=== PATIENT | male | born 1980 | race Caucasian/White ===

== ENCOUNTER 2018-07-23 13:56 | Emergency (ER) | payer OTHER, SELFPAY ==
[2018-07-23 13:59] VITALS: BP 143/93; PULSE 101; RESP 18; O2SAT 99; BMI 25.2
--- NOTE | 2018-07-23 14:21 | ED.NAVMDI ---
HPI - Nausea/Vomiting/Diarrhea <Janet Machado PA-C - Last Filed: 07/23/18 19:49> General Chief complaint: Nausea/Vomiting/Diarrhea Stated complaint: DEHYDARATION VOMITING Time Seen by Provider: 07/23/18 14:09 Source: patient Mode of arrival: ambulatory Limitations: no limitations History of Present Illness HPI Narrative: This 38-year-old female comes in due to 5 day history GI symptoms. He states that this started on Sunday with profuse vomiting all day. Sunday he vomited once, but then started to have watery and loose diarrhea. He states that diarrhea has persisted, Q hour last night until 1:00 a.m.. He states that he is not able to tolerate any food as it just causes recurrent diarrhea, i.e. tried a banana this morning and had diarrhea again. He states that he drank some Gatorade and had coffee and had diarrhea after that also. He feels fatigue and general malaise. He states he has persistent nausea, no vomiting today, and some crampy abdominal pain especially with the diarrhea episodes. He denies fever, chills, sweats. His 5-year-old daughter has had diarrhea for over a week now however she is been behaving normally, eating and drinking and energy is good. He states a classmate of hers had this as well. He denies any recent medication changes or antibiotic use. No recent travel or camping, no other known exposures. He denies other complaints on systems review Related Data Home Medications Medication Instructions Recorded Confirmed buprenorphine-naloxone 0.5 film SUBLINGUAL Q6-8H MDD 1.5 07/23/18 07/23/18 duloxetine 60 mg PO DAILY 07/23/18 07/23/18 ondansetron 8 mg TRANSLINGUAL Q8H PRN 07/23/18 07/23/18 testosterone 1 applic TOPICAL QAM 07/23/18 07/23/18 Allergies Allergy/AdvReac Type Severity Reaction Status Date / Time No Known Drug Allergies Allergy Verified 07/23/18 13:59 Review of Systems <LATRICE Welsh Last Filed: 07/23/18 19:49> Review of Systems ROS Unobtainable: All systems reviewed & are unremarkable except as noted in HPI and below PFSH <Janet Machado PA-C - Last Filed: 07/23/18 19:49> Medical History (Updated 07/23/18 @ 16:20 by Janet Machado PA-C) Depression (Chronic) History of narcotic addiction (Resolved) Surgical History (Updated 07/23/18 @ 14:48 by Janet Machado PA-C) No history of previous surgery (Chronic) Social History Smoking Status: Never smoker Social History Smoking Status: Never smoker Exam <Janet Machado PA-C - Last Filed: 07/23/18 19:49> Narrative Exam Narrative: GENERAL APPEARANCE: Patient sitting comfortably, in no distress. HEENT: PERRL, EOMI, no scleral icterus NECK: Supple LUNGS: Clear to auscultation bilaterally. HEART: Rate and rhythm regular, normal S1 and S2, no S3 or S4. ABDOMEN: Soft, nontender, nondistended, bowel sounds present x 4 quadrants, no masses palpable, no hepatosplenomegaly. EXTREMITIES: No edema DERMATOLOGIC: No jaundice or exanthem NEUROLOGIC: Alert and oriented with normal speech and coordination Initial Vital Signs Initial Vital Signs: Vital Signs Pulse Rate 101 H 07/23/18 13:59 Respiratory Rate 18 07/23/18 13:59 Blood Pressure 143/93 H 07/23/18 13:59 Pulse Oximetry 99 07/23/18 13:59 <Priscilla Owusu MD - Last Filed: 07/25/18 08:37> Initial Vital Signs Initial Vital Signs: Vital Signs Pulse Rate 101 H 07/23/18 13:59 Respiratory Rate 18 07/23/18 13:59 Blood Pressure 143/93 H 07/23/18 13:59 Pulse Oximetry 99 07/23/18 13:59 Course <Janet Machado PA-C - Last Filed: 07/23/18 19:49> Additional Information: Patient declined Zofran while he was here and is feeling better after fluids, tolerating water and crackers. He already has Zofran at home and will take that if needed. He will continue fluids and bland diet and will return if acutely worsening symptoms. Orders Ordered: Discontinued Medications Sodium Chloride (Normal Saline 0.9%) 1,000 mls @ 1,000 mls/hr IV BOLUS ONE Stop: 07/23/18 15:35 Last Infusion: 07/23/18 16:10 Dose: 0 mls/hr Admin: 07/23/18 15:01 Dose: 1,000 mls/hr Ondansetron HCl (Zofran) 4 mg IV NOW ONE Stop: 07/23/18 14:37 Last Admin: 07/23/18 15:30 Dose: Not Given Vital Signs - 8 hr 07/23/18 13:59 07/23/18 16:28 Pulse Rate 101 H 81 Respiratory Rate 18 16 Blood Pressure 143/93 H 131/75 Pulse Oximetry 99 97 <Priscilla Owusu MD - Last Filed: 07/25/18 08:37> Orders Ordered: Discontinued Medications Sodium Chloride (Normal Saline 0.9%) 1,000 mls @ 1,000 mls/hr IV BOLUS ONE Stop: 07/23/18 15:35 Last Infusion: 07/23/18 16:10 Dose: 0 mls/hr Admin: 07/23/18 15:01 Dose: 1,000 mls/hr Ondansetron HCl (Zofran) 4 mg IV NOW ONE Stop: 07/23/18 14:37 Last Admin: 07/23/18 15:30 Dose: Not Given Vital Signs - 8 hr 07/23/18 13:59 07/23/18 16:28 Pulse Rate 101 H 81 Respiratory Rate 18 16 Blood Pressure 143/93 H 131/75 Pulse Oximetry 99 97 MDM - Nausea/Vomiting/Diarrhea <Janet Machado PA-C - Last Filed: 07/23/18 19:49> Lab Data Result diagrams: 07/23/18 14:50 07/23/18 15:22 Lab Results 07/23/18 07/23/18 07/23/18 Range/Units 14:50 15:22 15:22 WBC 5.6 (4.5-11.0) X10^3/uL RBC 5.20 (4.5-5.9) X10^6/uL Hgb 16.4 (13.5-17.5) g/dL Hct 46.8 (41-53) % MCV 89.9 (80-100) fL MCH 31.6 (26-34) PG MCHC 35.1 (30-36) % RDW 13.2 (11.6-14.8) % Plt Count 174 (150-400) X10^3/uL Neut % (Auto) 61.8 (50-75) % Lymph % (Auto) 25.9 (25-40) % [place] % (Auto) 8.0 (3-14) % Eos % (Auto) 3.5 (2-4) % Baso % (Auto) 0.8 (0-2) % Neut # (Auto) 3400 (5142-0115) /uL Lymph # (Auto) 1400 (0275-3993) /uL [place] # (Auto) 400 (0-900) /uL Eos # (Auto) 200 (0-450) /uL Baso # (Auto) 0 (0-100) /uL Sodium 139 (137-145) mmol/L Potassium 4.1 (3.4-5.1) mmol/L Chloride 103 (98-107) mmol/L Carbon Dioxide 30 (22-32) mmol/L BUN 13 (9-20) mg/dL Creatinine 0.90 (0.66-1.25) mg/dL Estimated GFR > 60.0 (>60) mL/min BUN/Creatinine Ratio 14.4 (6-22) Glucose 84 (70-100) mg/dL Calcium 8.9 (8.4-10.2) mg/dL Total Bilirubin 0.9 (0.2-1.3) mg/dL AST 28 (17-59) IU/L ALT 28 (21-72) IU/L Alkaline Phosphatase 69 (38-126) U/L Total Protein 7.3 (6.3-8.2) g/dL Albumin 4.2 (3.5-5.0) g/dL Globulin 3.1 (1.7-4.1) g/dL Albumin/Globulin Ratio 1.4 (1.0-2.8) Lipase 20 L (23-300) U/L <Priscilla Owusu MD - Last Filed: 07/25/18 08:37> Lab Data Lab Results 07/23/18 07/23/18 07/23/18 Range/Units 14:50 15:22 15:22 WBC 5.6 (4.5-11.0) X10^3/uL RBC 5.20 (4.5-5.9) X10^6/uL Hgb 16.4 (13.5-17.5) g/dL Hct 46.8 (41-53) % MCV 89.9 (80-100) fL MCH 31.6 (26-34) PG MCHC 35.1 (30-36) % RDW 13.2 (11.6-14.8) % Plt Count 174 (150-400) X10^3/uL Neut % (Auto) 61.8 (50-75) % Lymph % (Auto) 25.9 (25-40) % [place] % (Auto) 8.0 (3-14) % Eos % (Auto) 3.5 (2-4) % Baso % (Auto) 0.8 (0-2) % Neut # (Auto) 3400 (5353-2697) /uL Lymph # (Auto) 1400 (1575-3988) /uL [place] # (Auto) 400 (0-900) /uL Eos # (Auto) 200 (0-450) /uL Baso # (Auto) 0 (0-100) /uL Sodium 139 (137-145) mmol/L Potassium 4.1 (3.4-5.1) mmol/L Chloride 103 (98-107) mmol/L Carbon Dioxide 30 (22-32) mmol/L BUN 13 (9-20) mg/dL Creatinine 0.90 (0.66-1.25) mg/dL Estimated GFR > 60.0 (>60) mL/min BUN/Creatinine Ratio 14.4 (6-22) Glucose 84 (70-100) mg/dL Calcium 8.9 (8.4-10.2) mg/dL Total Bilirubin 0.9 (0.2-1.3) mg/dL AST 28 (17-59) IU/L ALT 28 (21-72) IU/L Alkaline Phosphatase 69 (38-126) U/L Total Protein 7.3 (6.3-8.2) g/dL Albumin 4.2 (3.5-5.0) g/dL Globulin 3.1 (1.7-4.1) g/dL Albumin/Globulin Ratio 1.4 (1.0-2.8) Lipase 20 L (23-300) U/L Discharge Plan Departure Patient Disposition: Home Clinical Impression: Gastroenteritis Discharge Date/Time: 07/23/18 16:28 Interventions: ED Discharge Assessment Last Done: 07/23/18 16:28 Instructions: DI for Dehydration -- Adult, DI for Viral Gastroenteritis -- Adult, Gastroenteritis Diet Activity Restrictions/Additional Instructions: I suspect that your vomiting and diarrhea are due to a viral infection given that your daughter and her friend were sick prior to you, however as we talked about you should see your PCP if you are not continuing to feel better over the next few days. We did not do stool studies today since you did not have diarrhea while you were here. Please rest at home this evening. Please continue to drink lots of clear fluids, and you can have clear broth if you wish. As you start to feel better later tonight in the morning you can try small amounts of bland food such as bananas, white rice, white toast, and applesauce, and if you do well with these you can slowly advance your diet back to normal. You can take the antinausea pills that were prescribed for you over the weekend as needed. As we discussed, you should return here if you are feeling acutely worse again, i.e. unable to keep down any fluids, high fever, new abdominal pain, etc. Prescriptions: No Action ondansetron 8 mg tablet,disintegrating 8 mg Translingual Q8H PRN (Reason: Nausea) RF: 0 duloxetine 60 mg capsule,delayed release(DR/EC) 60 mg PO DAILY RF: 0 buprenorphine-naloxone 8-2 mg film 0.5 film Sublingual Q6-8H MDD 1.5 RF: 0 testosterone 20.25 mg/1.25 gram (1.62 %) gel in metered-dose pump 1 applic topical QAM RF: 0 Referrals: Michelle Esquivel ND [Non-Staff] -
[2018-07-23 15:00] LABS: Add Manual Diff / Slide Review NO; Basophils Absolute Auto 0 /uL (0-100); Basophils Percent Auto 0.8 % (0-2); Eosinophils Absolute Auto 200 /uL (0-450); Eosinophils Percent Auto 3.5 % (2-4); Hematocrit 46.8 % (41-53); Hemoglobin 16.4 g/dL (13.5-17.5); Lymphocytes Absolute Auto 1400 /uL (1100-4500); Lymphocytes Percent Auto 25.9 % (25-40); Mean Corpuscular HGB Conc 35.1 % (30-36); Mean Corpuscular Hemoglobin 31.6 PG (26-34); Mean Corpuscular Volume 89.9 fL (80-100); Monocytes Absolute Auto 400 /uL (0-900); Neutrophils Absolute Auto 3400 /uL (1500-7000); Neutrophils Percent Auto 61.8 % (50-75); Platelet Count 174 X10^3/uL (150-400); Red Cell Distribution Width 13.2 % (11.6-14.8); White Blood Cell Count 5.6 X10^3/uL (4.5-11.0)
[2018-07-23] MEDS: SODIUM CHLORIDE 0.9% 1,000 ML 1000 ML IV (15:01)
[2018-07-23 15:25] LABS: Lipase 20 U/L (23-300)
[2018-07-23 15:40] LABS: Alanine Aminotransferase 28 IU/L (21-72); Albumin 4.2 g/dL (3.5-5.0); Albumin Globulin Ratio 1.4 (1.0-2.8); Alkaline Phosphatase 69 U/L (38-126); Aspartate Aminotransferase 28 IU/L (17-59); BUN Creatinine Ratio 14.4 (6-22); Bilirubin Total 0.9 mg/dL (0.2-1.3); Blood Urea Nitrogen 13 mg/dL (9-20); Calcium 8.9 mg/dL (8.4-10.2); Carbon Dioxide 30 mmol/L (22-32); Chloride 103 mmol/L (98-107); Estimated Glomerular Filt Rate > 60.0 mL/min (>60); Globulin 3.1 g/dL (1.7-4.1); Glucose 84 mg/dL (70-100); HEMOLYSIS < 15 (0-50); Potassium 4.1 mmol/L (3.4-5.1); Sodium 139 mmol/L (137-145); Total Protein 7.3 g/dL (6.3-8.2)
[2018-07-23 16:28] VITALS: BP 131/75; PULSE 81; RESP 16; O2SAT 97
== END 2018-07-23 16:28 | disposition home or self-care (01) ==
PROVIDERS: Emergency Medicine; Emergency Provider Internal Medicine
DX: K52.9 Noninfective gastroenteritis and colitis, unspecified (principal)
CPT/HCPCS: 36415; 36591; 80053; 83690; 85025; 96360; 99283

== ENCOUNTER → 2019-05-08 09:45 | Outpatient (CLI) | payer OTHER, SELFPAY ==
[2019-05-08 10:21] LABS: Alanine Aminotransferase 35 IU/L (<50); Albumin 4.6 g/dL (3.5-5.0); Albumin Globulin Ratio 1.4 (1.0-2.8); Alkaline Phosphatase 63 U/L (38-126); Aspartate Aminotransferase 48 IU/L (17-59); BUN Creatinine Ratio 29.5 (6-22); Bilirubin Total 0.6 mg/dL (0.2-1.3); Blood Urea Nitrogen 28 mg/dL (9-20); Calcium 9.7 mg/dL (8.4-10.2); Carbon Dioxide 27 mmol/L (22-32); Chloride 105 mmol/L (98-107); Estimated Glomerular Filt Rate > 60.0 mL/min (>60); Globulin 3.3 g/dL (1.7-4.1); Glucose 92 mg/dL (70-100); HEMOLYSIS < 15 (0-50); Potassium 4.3 mmol/L (3.4-5.1); Sodium 140 mmol/L (137-145); Total Protein 7.9 g/dL (6.3-8.2)
[2019-05-08 11:21] LABS: Thyroid Stimulating Hormone 1.39 uIU/mL (0.47-4.68)
[2019-05-13 12:19] LABS: Testosterone Free 95.72 ng/dL (5.00-21.00)
[2019-05-13 12:41] LABS: Testosterone Total 2076.4 ng/dL (264.0-916.0)
== END ==
PROVIDERS: Referring Provider Acupuncturist; Visit Provider Acupuncturist
DX: E29.1 Testicular hypofunction (principal); R53.83 Other fatigue
CPT/HCPCS: 36415; 80053; 84402; 84403; 84443

== ENCOUNTER → 2019-10-15 09:54 | Outpatient (CLI) | payer OTHER, SELFPAY ==
[2019-10-15 12:26] LABS: Testosterone > 2160 ng/dL (132-813)
== END ==
PROVIDERS: Referring Provider Acupuncturist; Visit Provider Acupuncturist
DX: E29.1 Testicular hypofunction (principal)
CPT/HCPCS: 36415; 84403

== ENCOUNTER → 2020-01-07 11:20 | Outpatient (CLI) | payer OTHER, SELFPAY ==
[2020-01-11 02:11] LABS: Percent Free Testosterone 3.97 % (1.50-4.20); Testosterone Free 11.05 ng/dL (5.00-21.00); Testosterone Total 278.4 ng/dL (264.0-916.0)
== END ==
PROVIDERS: PCP Acupuncturist; Referring Provider Acupuncturist; Visit Provider Acupuncturist
DX: E29.1 Testicular hypofunction (principal)
CPT/HCPCS: 36415; 84402; 84403

== ENCOUNTER 2020-05-25 18:35 | Emergency (ER) | payer OTHER, SELFPAY ==
[2020-05-25 18:41] VITALS: BP 155/81; PULSE 100; RESP 20; TEMP 37.3; O2SAT 99
--- NOTE | 2020-05-25 18:45 | DI.RAD.S_ITS ---
PROCEDURE: XR CHEST 1V INDICATIONS: chest pain TECHNIQUE: One view of the chest was acquired. COMPARISON: None. FINDINGS: Surgical changes and devices: None. Lungs and pleura: Lungs are clear. No pleural effusions or pneumothorax. Mediastinum: Mediastinal contours appear normal. Heart size is normal. Bones and chest wall: No suspicious bony lesions. Overlying soft tissues appear unremarkable. IMPRESSION: No acute cardiopulmonary abnormality. Dictated by: Donny Rao M.D. on 05/25/2020 at 19:42 Approved by: Donny Rao M.D. on 05/25/2020 at 19:42
[2020-05-25 19:01] LABS: Add Manual Diff / Slide Review NO; Basophils Absolute Auto 0 /uL (0-100); Basophils Percent Auto 0.5 % (0-2); Eosinophils Absolute Auto 200 /uL (0-450); Eosinophils Percent Auto 2.7 % (2-4); Hematocrit 43.1 % (41-53); Lymphocytes Absolute Auto 1700 /uL (1100-4500); Lymphocytes Percent Auto 24.8 % (25-40); Mean Corpuscular HGB Conc 34.9 % (30-36); Mean Corpuscular Hemoglobin 31.1 PG (26-34); Mean Corpuscular Volume 89.2 fL (80-100); Monocytes Absolute Auto 400 /uL (0-900); Monocytes Percent Auto 6.2 % (3-14); Neutrophils Absolute Auto 4500 /uL (1500-7000); Neutrophils Percent Auto 65.8 % (50-75); Platelet Count 189 X10^3/uL (150-400); Red Blood Cell Count 4.84 X10^6/uL (4.5-5.9); Red Cell Distribution Width 12.6 % (11.6-14.8); White Blood Cell Count 6.9 X10^3/uL (4.5-11.0)
[2020-05-25 19:12] LABS: INR 1.2 (0.9-1.3); Prothrombin Time 13.6 SECONDS (10.1-12.7)
[2020-05-25 19:15] LABS: PTT Partial Thromboplastin Tim 34 SECONDS (26.4-36.2)
[2020-05-25 19:18] LABS: Alanine Aminotransferase 39 IU/L (<50); Albumin 4.8 g/dL (3.5-5.0); Albumin Globulin Ratio 1.4 (1.0-2.8); Alkaline Phosphatase 64 U/L (38-126); Aspartate Aminotransferase 60 IU/L (17-59); BUN Creatinine Ratio 28.4 (6-22); Bilirubin Total 0.7 mg/dL (0.2-1.3); Blood Urea Nitrogen 29 mg/dL (9-20); Calcium 9.8 mg/dL (8.4-10.2); Carbon Dioxide 31 mmol/L (22-32); Chloride 101 mmol/L (98-107); Creatine Kinase 552 U/L (55-170); Estimated Glomerular Filt Rate > 60.0 mL/min (>60); Globulin 3.4 g/dL (1.7-4.1); Glucose 94 mg/dL (70-100); Lipase 37 U/L (23-300); Sodium 139 mmol/L (137-145); Total Protein 8.2 g/dL (6.3-8.2)
[2020-05-25 19:30] LABS: Troponin I < 0.012 ng/mL (0.01-0.034)
[2020-05-25 19:33] LABS: CKMB % Relative Index 1.1 % (1.5-5.0); Creatine Kinase MB 6.15 ng/mL (<2.37); HEMOLYSIS 44 (0-50)
--- NOTE | 2020-05-25 20:51 | ED_ITS ---
HPI - Chest Pain General Chief Complaint: Chest Pain Stated Complaint: CHEST TIGHTNESS ANXIETY Time Seen by Provider: 05/25/20 18:40 Source: patient Mode of arrival: Ambulatory Limitations: no limitations History of Present Illness HPI narrative: 40-year-old male nonsmoker without significant medical history presents with his significant other and a chief complaint of some squeezing in chest pressure that had been present earlier in the day but has long since resolved. He states that he had been in his normal state of health this morning but over the course of the day consume a significant amount of caffeine, much more than normal and also took a dietary supplement prior to working out. Started feeling an uncomfortable sensation in his anterior chest and when lifting weights developed some palpitations and increased pressure. He denies any obvious provocation, palliation or radiation. He denies dizziness, weakness or lightheadedness. He has had no exertional alteration of his symptoms, unexplained nausea, vomiting or diaphoresis He denies history of blood clot, cancer or recent trauma. He is at his baseline and asymptomatic for the visit MD complaint: chest pain Onset (ago): hour(s) Duration: now resolved Pain location: left chest Severity: mild Quality: aching Related Data Home Medications Medication Instructions Recorded Confirmed buprenorphine-naloxone 0.5 film SUBLINGUAL Q6-8H MDD 1.5 07/23/18 07/23/18 duloxetine 60 mg PO DAILY 07/23/18 07/23/18 ondansetron 8 mg TRANSLINGUAL Q8H PRN 07/23/18 07/23/18 testosterone 1 applic TOPICAL QAM 07/23/18 07/23/18 Allergies Allergy/AdvReac Type Severity Reaction Status Date / Time No Known Drug Allergies Allergy Verified 07/23/18 13:59 Review of Systems Constitutional Constitutional: Denies chills, Denies fatigue, Denies fever(s), Denies frequent falls, Denies lethargy and Denies weakness Eyes Eyes: Denies change in vision, Denies eye discharge, Denies irritation and Denies loss of vision ENT Ears, Nose, Mouth, and Throat: Denies change in voice, Denies dizziness, Denies neck pain, Denies sore throat and Denies throat swelling Cardiovascular Cardiovascular: Reports chest pain, Denies irregular heart rhythm, Denies li ghtheadedness, Denies palpitations, Denies dyspnea, Denies dyspnea on exertion and Denies orthopnea Respiratory Respiratory: Denies cough, Denies dyspnea, Denies dyspnea on exertion and Denies wheezing Gastrointestinal Gastrointestinal: Denies abdominal pain, Denies change in bowel habits, Denies diarrhea, Denies nausea and Denies vomiting Musculoskeletal Musculoskeletal: Denies neck pain and Denies numbness Integumentary/Breasts Skin/Breast: Denies pruritus, Denies erythema, Denies rash and Denies wounds Neurologic Neurologic: Denies behavioral changes, Denies confusion, Denies dizziness, Denies frequent falls, Denies loss of vision, Denies numbness and Denies weakness Psychiatric Psychiatric: Denies anxiety, Denies behavioral changes, Denies confusion, Denies depression, Denies homicidal ideation and Denies suicidal ideation Endocrine Endocrine: Denies fatigue, Denies flushing and Denies palpitations Hematologic/Lymphatic Hematologic/Lymphatic: Denies easy bruising Allergic/Immunologic Allergic/Immunologic: Denies urticaria, Denies throat swelling and Denies wheezing Patient History Medical History Depression History of narcotic addiction Surgical History No history of previous surgery Social History Smoking Status: Never smoker Smoking Status: Never smoker alcohol intake frequency: 0-2 drinks per day Substance Use Type: does not use Exam Narrative Exam Narrative: GENERAL: [40] year old patient appears stated age. Well- nourished, well-developed patient, in mild distress. HEAD: Atraumatic. Normocephalic. EYES: Pupils equal round and reactive. Extraocular motions intact. No scleral icterus. No injection or drainage. ENT: Nose without bleeding, purulent drainage. Throat without erythema, tonsillar hypertrophy or exudate. Airway patent. NECK: Trachea midline. Non tender CARDIOVASCULAR: Regular rate and rhythm without murmurs, gallops, or rubs. RESPIRATORY: Clear to auscultation. Breath sounds equal bilaterally. No wheezes, rales, or rhonchi. GASTROINTESTINAL: Abdomen soft, non-tender, nondistended. EXTREMITIES: No edema or joint tenderness. BACK: Nontender without deformity or crepitance. No flank tenderness. NEURO: AOx3. SKIN: No rash or erythema of visible areas Initial Vital Signs Initial Vital Signs: Vital Signs Temperature 99.2 F 05/25/20 18:41 Pulse Rate 100 H 05/25/20 18:41 Respiratory Rate 20 05/25/20 18:41 Blood Pressure 155/81 H 05/25/20 18:41 Pulse Oximetry 99 05/25/20 18:41 Scores HEART Score Heart Score history: Slightly Suspicious Heart Score EKG: Normal Heart Score Age: < 45 years old Heart Score risk factors: No known risk factors Heart Score troponin: < or = to normal limit Heart Score Total: 0 Course Orders Ordered: ED Orders 05/25/20 18:45 XR chest 1V Stat EKG-12 Lead Stat 05/25/20 18:50 Complete Blood Count AUTO DIFF Stat Comprehensive Metabolic Panel Stat Lipase Stat Partial Thromboplastin Time Stat Prothrombin Time INR Stat Troponin & CK Cardiac Panel Stat Vital Signs Vital signs: Vital Signs - 8 hr 05/25/20 18:41 Temperature 99.2 F Pulse Rate 100 H Respiratory Rate 20 Blood Pressure 155/81 H Pulse Oximetry 99 MDM - Chest Pain Lab Data Result diagrams: 05/25/20 18:50 05/25/20 18:50 Labs: Lab Results 05/25/20 05/25/20 05/25/20 Range/Units 18:50 18:50 18:50 WBC 6.9 (4.5-11.0) X10^3/uL RBC 4.84 (4.5-5.9) X10^6/uL Hgb 15.0 (13.5-17.5) g/dL Hct 43.1 (41-53) % MCV 89.2 (80-100) fL MCH 31.1 (26-34) PG MCHC 34.9 (30-36) % RDW 12.6 (11.6-14.8) % Plt Count 189 (150-400) X10^3/uL Neut % (Auto) 65.8 (50-75) % Lymph % (Auto) 24.8 L (25-40) % [place] % (Auto) 6.2 (3-14) % Eos % (Auto) 2.7 (2-4) % Baso % (Auto) 0.5 (0-2) % Neut # (Auto) 4500 (8098-5399) /uL Lymph # (Auto) 1700 (6101-5708) /uL [place] # (Auto) 400 (0-900) /uL Eos # (Auto) 200 (0-450) /uL Baso # (Auto) 0 (0-100) /uL PT 13.6 H (10.1-12.7) SECONDS INR 1.2 (0.9-1.3) APTT 34 (26.4-36.2) SECONDS Sodium 139 (137-145) mmol/L Potassium 4.0 (3.4-5.1) mmol/L Chloride 101 (98-107) mmol/L Carbon Dioxide 31 (22-32) mmol/L BUN 29 H (9-20) mg/dL Creatinine 1.02 (0.66-1.25) mg/dL Estimated GFR > 60.0 (>60) mL/min BUN/Creatinine Ratio 28.4 H (6-22) Glucose 94 (70-100) mg/dL Calcium 9.8 (8.4-10.2) mg/dL Total Bilirubin 0.7 (0.2-1.3) mg/dL AST 60 H (17-59) IU/L ALT 39 (<50) IU/L Alkaline Phosphatase 64 (38-126) U/L Total Creatine Kinase 552 H (55-170) U/L CK-MB (CK-2) 6.15 H (<2.37) ng/mL CK-MB (CK-2) Rel Index 1.1 L (1.5-5.0) % Troponin I < 0.012 (0.01-0.034) ng/mL Total Protein 8.2 (6.3-8.2) g/dL Albumin 4.8 (3.5-5.0) g/dL Globulin 3.4 (1.7-4.1) g/dL Albumin/Globulin Ratio 1.4 (1.0-2.8) Lipase 37 (23-300) U/L Imaging Data Chest x-ray: Radiologist's Impression: [address] [id number] ReportSigned Patient: David Kruger KMR#: [id number]: [id number]:[id number]/Sex: 40 / MDate of Service: 05/25/20Loc: EDAccession Number: [id number] Procedure: XR chest 1V Ordering Provider: Arnulfo Montes D.O. PROCEDURE: XR CHEST 1V INDICATIONS: chest pain TECHNIQUE: One view of the chest was acquired. COMPARISON: None. FINDINGS: Surgical changes and devices: None. Lungs and pleura: Lungs are clear. No pleural effusions or pneumothorax. Mediastinum: Mediastinal contours appear normal. Heart size is normal. Bones and chest wall: No suspicious bony lesions. Overlying soft tissues appear unremarkable. IMPRESSION: No acute cardiopulmonary abnormality. Dictated by: Donny Rao M.D. on 05/25/2020 at 19:42 Approved by: Donny Rao M.D. on 05/25/2020 at 19:42 ECG Data Attestation: I personally reviewed and interpreted this ECG as follows: Interpretation: EKG is normal sinus rhythm rate [ 97] and free of any signs of ischemia or ectopy. No ST segmental elevation or depression. No T wave inversions MDM Narrative Medical decision making narrative: Multiple causes of chest pain considered including CA, PE, pneumothorax, pneumonia, aortic dissection, and pleurisy. Patient reports no radiation, no diaphoresis, no provocation with exertion, and no vomiting Patient's symptoms improved over duration of stay with above-stated therapies. Findings and discharge diagnosis discussed with patient/family followed by verbalization of understanding Return precautions discussed with patient/family whom verbalize understanding. Discharge Plan Departure Patient Disposition: Home Clinical Impression: Atypical chest pain Instructions: DI for Atypical Chest Pain Activity Restrictions/Additional Instructions: *You have been diagnosed with [atypical chest pain. Your story, physical exam, EKG and lab work are very reassuring. Chest x-ray showed no abnormal findings.] *What to do: *Take medications as directed *Follow up with your primary care provider in 2-3 days, call for an appointment. Let them know you were seen in the Emergency Department and that we ask that you be seen in follow up *Return to ER if you should have any new, worsening or concerning symptoms Prescriptions: No Action ondansetron 8 mg tablet,disintegrating 8 mg Translingual Q8H PRN (Reason: Nausea) RF: 0 duloxetine 60 mg capsule,delayed release(DR/EC) 60 mg PO DAILY RF: 0 buprenorphine-naloxone 8-2 mg film 0.5 film Sublingual Q6-8H MDD 1.5 RF: 0 testosterone 20.25 mg/1.25 gram (1.62 %) gel in metered-dose pump 1 applic topical QAM RF: 0 Referrals: Michelle Esquivel ND [Primary Care Provider] -
== END 2020-05-25 21:14 | disposition home or self-care (01) ==
PROVIDERS: Emergency Provider Emergency Medicine; PCP Acupuncturist
DX: R07.89 Other chest pain (principal)
CPT/HCPCS: 36415; 71045; 80053; 82550; 82553; 83690; 84484; 85025; 85610; 85730; 93005; 99284

== ENCOUNTER → 2020-07-09 09:39 | Outpatient (CLI) | payer OTHER, SELFPAY ==
[2020-07-09 10:50] LABS: Add Manual Diff / Slide Review NO; Basophils Absolute Auto 0 /uL (0-100); Basophils Percent Auto 0.9 % (0-2); Eosinophils Absolute Auto 100 /uL (0-450); Eosinophils Percent Auto 3.2 % (2-4); Hematocrit 43.1 % (41-53); Hemoglobin 14.7 g/dL (13.5-17.5); Lymphocytes Absolute Auto 1700 /uL (1100-4500); Lymphocytes Percent Auto 39.3 % (25-40); Mean Corpuscular HGB Conc 34.1 % (30-36); Mean Corpuscular Hemoglobin 31.4 PG (26-34); Mean Corpuscular Volume 92.1 fL (80-100); Monocytes Absolute Auto 200 /uL (0-900); Monocytes Percent Auto 5.8 % (3-14); Neutrophils Absolute Auto 2100 /uL (1500-7000); Neutrophils Percent Auto 50.8 % (50-75); Platelet Count 199 X10^3/uL (150-400); Red Blood Cell Count 4.68 X10^6/uL (4.5-5.9); Red Cell Distribution Width 13.5 % (11.6-14.8); White Blood Cell Count 4.2 X10^3/uL (4.5-11.0)
[2020-07-09 11:56] LABS: Prostate Specific Antigen Scrn 0.338 ng/mL (0.1-4.0)
[2020-07-13 11:50] LABS: Percent Free Testosterone 2.98 % (1.50-4.20); Testosterone Free 5.77 ng/dL (5.00-21.00); Testosterone Total 193.6 ng/dL (264.0-916.0)
== END ==
PROVIDERS: PCP Acupuncturist; Referring Provider Acupuncturist; Visit Provider Acupuncturist
DX: E34.9 Endocrine disorder, unspecified (principal)
CPT/HCPCS: 36415; 84402; 84403; 85025; G0103

== ENCOUNTER → 2020-09-13 11:08 | Outpatient (CLI) | payer OTHER, SELFPAY ==
[2020-09-13 12:51] LABS: COVID19 -Nasal RAPID Negative (Negative)
== END ==
PROVIDERS: PCP Acupuncturist; Visit Provider Student in an Organized Health Care Education/Training Program
DX: Z20.822 Contact with and (suspected) exposure to COVID-19 (principal); J02.9 Acute pharyngitis, unspecified; R05 Cough
CPT/HCPCS: 87635

== ENCOUNTER → 2020-11-12 09:12 | Outpatient (CLI) | payer OTHER, SELFPAY ==
[2020-11-12 10:11] LABS: BUN Creatinine Ratio 24.2 (6-22); Blood Urea Nitrogen 23 mg/dL (9-20); Calcium 9.5 mg/dL (8.4-10.2); Carbon Dioxide 32 mmol/L (22-32); Chloride 104 mmol/L (98-107); Cholesterol 117 mg/dL (140-199); Estimated Glomerular Filt Rate > 60.0 mL/min (>60); Glucose 94 mg/dL (70-100); HDL Cholesterol 38 mg/dL (40-60); HEMOLYSIS < 15 (0-50); LDL Cholesterol Calculated 69 mg/dL (<100); Potassium 4.3 mmol/L (3.4-5.1); Sodium 140 mmol/L (137-145); Triglycerides 52 mg/dL (35-150)
[2020-11-20 10:18] LABS: Percent Free Testosterone 4.44 % (1.50-4.20); Testosterone Free 42.28 ng/dL (5.00-21.00); Testosterone Total 952.3 ng/dL (264.0-916.0)
== END ==
PROVIDERS: PCP Acupuncturist; Referring Provider Acupuncturist; Visit Provider Acupuncturist
DX: E29.1 Testicular hypofunction (principal); Z00.00 Encounter for general adult medical examination without abnormal findings
CPT/HCPCS: 36415; 80048; 80061; 84402; 84403; 84443

== ENCOUNTER 2021-02-10 16:17 | Emergency (ER) | payer OTHER, SELFPAY ==
--- NOTE | 2021-02-10 16:24 | DI.RAD.S_ITS ---
PROCEDURE: XR CHEST 1V INDICATIONS: chest pain TECHNIQUE: One view of the chest was acquired. COMPARISON: [facility], CR, XR CHEST 1V, 05/25/2020, 19:05. FINDINGS: Surgical changes and devices: None. Lungs and pleura: Lungs are clear. No pleural effusions or pneumothorax. Mediastinum: Mediastinal contours appear normal. Heart size is normal. Bones and chest wall: No suspicious bony lesions. Overlying soft tissues appear unremarkable. IMPRESSION: No acute cardiopulmonary pathology. Dictated by: Kai Anthony M.D. on 02/10/2021 at 16:42 Approved by: Kai Anthony M.D. on 02/10/2021 at 16:44
[2021-02-10 16:25] VITALS: BP 169/91; PULSE 94; RESP 17; TEMP 36.7; O2SAT 99; BMI 26.4
[2021-02-10 16:58] LABS: Add Manual Diff / Slide Review NO; Basophils Absolute Auto 0 /uL (0-100); Basophils Percent Auto 0.6 % (0-2); Eosinophils Absolute Auto 200 /uL (0-450); Eosinophils Percent Auto 2.9 % (2-4); Hematocrit 43.4 % (41-53); Hemoglobin 15.1 g/dL (13.5-17.5); Lymphocytes Absolute Auto 1400 /uL (1100-4500); Lymphocytes Percent Auto 26.5 % (25-40); Mean Corpuscular HGB Conc 34.7 % (30-36); Mean Corpuscular Hemoglobin 31.4 PG (26-34); Mean Corpuscular Volume 90.3 fL (80-100); Monocytes Absolute Auto 300 /uL (0-900); Monocytes Percent Auto 6.5 % (3-14); Neutrophils Absolute Auto 3400 /uL (1500-7000); Neutrophils Percent Auto 63.5 % (50-75); Platelet Count 165 X10^3/uL (150-400); Red Cell Distribution Width 12.8 % (11.6-14.8); White Blood Cell Count 5.4 X10^3/uL (4.5-11.0)
[2021-02-10 17:07] LABS: Alanine Aminotransferase 65 IU/L (<50); Albumin 4.7 g/dL (3.5-5.0); Albumin Globulin Ratio 1.3 (1.0-2.8); Alkaline Phosphatase 59 U/L (38-126); Aspartate Aminotransferase 81 IU/L (17-59); Bilirubin Total 0.6 mg/dL (0.2-1.3); Blood Urea Nitrogen 27 mg/dL (9-20); Calcium 9.7 mg/dL (8.4-10.2); Carbon Dioxide 32 mmol/L (22-32); Chloride 102 mmol/L (98-107); Creatine Kinase 922 U/L (55-170); Estimated Glomerular Filt Rate > 60.0 mL/min (>60); Globulin 3.5 g/dL (1.7-4.1); Glucose 150 mg/dL (70-100); HEMOLYSIS < 15 (0-50); Lipase 35 U/L (23-300); Potassium 3.9 mmol/L (3.4-5.1); Sodium 140 mmol/L (137-145); Total Protein 8.2 g/dL (6.3-8.2)
[2021-02-10 17:19] LABS: Troponin I < 0.012 ng/mL (0.01-0.034)
[2021-02-10 17:22] LABS: CKMB % Relative Index 1.1 % (1.5-5.0)
[2021-02-10 17:30] VITALS: BP 155/75; PULSE 77; RESP 18; O2SAT 99
--- NOTE | 2021-02-10 17:34 | ED_ITS ---
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 in the afternoon. Also notes that he uses quite a bit of caffeine including caffeine pills in the morning, occasional red Bulls during the day and then uses a high caffeine pre workout complex just prior to his workouts, after he is off shift. Today he had an episode chest tightness and mild dyspnea that did not seem to resolve until he actually got to the emergency department. Does not describe palpitations, diaphoresis, nausea vomiting or diarrhea. He has not been gaining or losing weight. He notes no orthopnea, is exceptionally active during most of the day and not having any exertional chest pain or dyspnea. Related Data Home Medications Medication Instructions Recorded Confirmed buprenorphine 8 mg-naloxone 2 mg 0.5 film SUBLINGUAL Q6-8H MDD 1.5 07/23/18 07/23/18 sublingual film duloxetine 60 mg capsule,delayed 60 mg PO DAILY 07/23/18 07/23/18 release ondansetron 8 mg disintegrating 8 mg TRANSLINGUAL Q8H PRN 07/23/18 07/23/18 tablet testosterone 20.25 mg/1.25 gram 1 applic TOPICAL QAM 07/23/18 07/23/18 (1.62 %) transdermal gel pump Allergies Allergy/AdvReac Type Severity Reaction Status Date / Time No Known Drug Allergies Allergy Verified 05/26/20 08:20 Review of Systems Review of Systems Narrative: Remainder of complete review of systems is otherwise unremarkable except for that included in the HPI. Patient History Medical History Depression History of narcotic addiction Surgical History No history of previous surgery Social History Smoking Status: Never smoker Smoking Status: Never smoker alcohol intake frequency: 0-2 drinks per day Alcohol type: other Substance Use Type: does not use Exam Narrative Exam Narrative: General: Healthy appearing, in no acute distress. Able to give a complete and coherent history. Well-nourished well-developed HEENT: Moist mucous membranes, normal sclera with reactive pupils, Neck: No JVD, supple Respiratory: Lungs are clear to auscultation, no wheezing no rales no rhonchi. Full and symmetrical air movement Cardiac: Regular rate and rhythm no murmurs no bruits Abdomen: Soft, nontender, good bowel tones, no flank pain Skin: Warm and dry, no rashes Neurologic: Grossly neurologically intact with no obvious asymmetries or abnormalities Extremities: No trauma, well perfused Psych: Cooperative, appropriate insight and affect Initial Vital Signs Initial Vital Signs: Vital Signs Temperature 98.1 F 02/10/21 16:25 Pulse Rate 94 H 02/10/21 16:25 Respiratory Rate 17 02/10/21 16:25 Blood Pressure 169/91 H 02/10/21 16:25 Pulse Oximetry 99 02/10/21 16:25 Course Orders Ordered: ED Orders 02/10/21 16:24 XR chest 1V Stat EKG-12 Lead Stat 02/10/21 16:46 Complete Blood Count AUTO DIFF Stat Comprehensive Metabolic Panel Stat Lipase Stat Magnesium Stat Troponin & CK Cardiac Panel Stat Vital Signs Vital signs: Vital Signs - 8 hr 02/10/21 16:25 02/10/21 17:30 02/10/21 18:30 Temperature 98.1 F Pulse Rate 94 H 77 78 Respiratory Rate 17 18 17 Blood Pressure 169/91 H 155/75 H 133/67 Pulse Oximetry 99 99 99 MDM - Chest Pain Lab Data Result diagrams: 02/10/21 16:46 02/10/21 16:46 Labs: Lab Results 02/10/21 02/10/21 Range/Units 16:46 16:46 WBC 5.4 (4.5-11.0) X10^3/uL RBC 4.80 (4.5-5.9) X10^6/uL Hgb 15.1 (13.5-17.5) g/dL Hct 43.4 (41-53) % MCV 90.3 (80-100) fL MCH 31.4 (26-34) PG MCHC 34.7 (30-36) % RDW 12.8 (11.6-14.8) % Plt Count 165 (150-400) X10^3/uL Neut % (Auto) 63.5 (50-75) % Lymph % (Auto) 26.5 (25-40) % [place] % (Auto) 6.5 (3-14) % Eos % (Auto) 2.9 (2-4) % Baso % (Auto) 0.6 (0-2) % Neut # (Auto) 3400 (8117-1678) /uL Lymph # (Auto) 1400 (4057-4765) /uL [place] # (Auto) 300 (0-900) /uL Eos # (Auto) 200 (0-450) /uL Baso # (Auto) 0 (0-100) /uL Sodium 140 (137-145) mmol/L Potassium 3.9 (3.4-5.1) mmol/L Chloride 102 (98-107) mmol/L Carbon Dioxide 32 (22-32) mmol/L BUN 27 H (9-20) mg/dL Creatinine 1.04 (0.66-1.25) mg/dL Estimated GFR > 60.0 (>60) mL/min BUN/Creatinine Ratio 26.0 H (6-22) Glucose 150 H (70-100) mg/dL Calcium 9.7 (8.4-10.2) mg/dL Magnesium 2.0 (1.6-2.3) mg/dL Total Bilirubin 0.6 (0.2-1.3) mg/dL AST 81 H (17-59) IU/L ALT 65 H (<50) IU/L Alkaline Phosphatase 59 (38-126) U/L Total Creatine Kinase 922 H (55-170) U/L CK-MB (CK-2) 10.30 H (<2.37) ng/mL CK-MB (CK-2) Rel Index 1.1 L (1.5-5.0) % Troponin I < 0.012 (0.01-0.034) ng/mL Total Protein 8.2 (6.3-8.2) g/dL Albumin 4.7 (3.5-5.0) g/dL Globulin 3.5 (1.7-4.1) g/dL Albumin/Globulin Ratio 1.3 (1.0-2.8) Lipase 35 (23-300) U/L Imaging Data Chest x-ray: Radiologist's Impression: FINDINGS:? ? Surgical changes and devices:? None.? ? Lungs and pleura:? Lungs are clear.? No pleural effusions or pneumothorax.? ? Mediastinum:? Mediastinal contours appear normal.? Heart size is normal.? ? Bones and chest wall:? No suspicious bony lesions.? Overlying soft tissues a ppear unremarkable.? ? IMPRESSION:? No acute cardiopulmonary pathology. ? ? Dictated by: Kai Anthony M.D. on 02/10/2021 at 16:42? ?? ECG Data Interpretation: Sinus rhythm at a rate of 88 Normal axis, normal intervals No acute ischemic changes MDM Narrative Medical decision making narrative: 40-year-old gentleman who presents with chest tightness associated with mild dyspnea at now completely resolved. Workup is entirely unremarkable. His creatinine kinase was slightly elevated do believe is consistent with his workout supplements and recent vigorous weightlifting workouts. There is no evidence of rhabdomyolysis, acute coronary syndrome, infection, asthma or other life-threatening abnormalities We discussed his caffeine use and how it likely is contributing to his symptoms as it seems to occur about an hour after he takes is heavily caffeinated pre workout supplement. We also talked about how that is likely adversely affecting his sleep leaving him feeling tired in the morning feeling that he needs even more caffeine. He was very willing to consider significantly cutting back on caffeine. Reassurance is given and he is safe for home discharge Discharge Plan Departure Patient Disposition: Home Clinical Impression: Atypical chest pain, Adverse effect of caffeine Instructions: DI for Atypical Chest Pain Activity Restrictions/Additional Instructions: Thank you for coming in today Your blood work was very reassuring. There is no evidence of heart attack or acute coronary syndrome. Your creatinine was relatively elevated and I believe this is related to your heavy workouts as well as supplementation, I do not think this is a concerning abnormality or kidney problem Regarding the shortness of breath that your of noticed a couple times now at the end of your work shift, I suspect that your caffeine intake is contributing to this. When you get used to quite a bit of caffeine, it is sometimes difficult to realize how much of an effect is still having on your body. You mention still being tired and feeling that you need caffeine even after reasonable amounts of sleep. I suspect that your pre workout large dose of caffeine adversely affecting your sleep. I would recommend you cut caffeine out in the afternoons completely. Find a pre workout drink that does not include caffeine. After you have adjusted to this change, I would recommend cutting Monster drinks out completely. After that, cut down the morning caffeine dose by half and then completely eliminate that. Decreasing caffeine can cause headaches so go slowly. Regarding her workouts, seeing how high your creatinine level is lets me know how hard your working your muscles. This is a breakdown product of muscles. Without much of a workout you need to allow the muscle to reform. This means a true rest day. And notes he has difficult to think about cutting down on working out that you may find that you feel better, have more energy and are still achieving all of the results you are hoping for If you have worsening symptoms or new complaints, please feel free to return to the ER. I wish you the best Prescriptions: No Action ondansetron 8 mg tablet,disintegrating 8 mg Translingual Q8H PRN (Reason: Nausea) 0RF Label Comments: patient states did not every take medication due to concern of interaction with duloxetine. 07/23/18 duloxetine 60 mg capsule,delayed release(DR/EC) 60 mg PO DAILY 0RF Label Comments: take 1 capsule by mouth once daily buprenorphine-naloxone 8-2 mg film 0.5 film Sublingual Q6-8H MDD 1.5 0RF Label Comments: patient states tapering. Currently 1/2 film am and pm and 1/4 if needed testosterone 20.25 mg/1.25 gram (1.62 %) gel in metered-dose pump 1 applic topical QAM 0RF Referrals: Michelle Esquivel ND [Primary Care Provider] -
[2021-02-10 18:30] VITALS: BP 133/67; PULSE 78; RESP 17; O2SAT 99
== END 2021-02-10 18:35 | disposition home or self-care (01) ==
PROVIDERS: Emergency Provider Emergency Medicine; PCP Acupuncturist
DX: R07.89 Other chest pain (principal); T43.615A Adverse effect of caffeine, initial encounter
CPT/HCPCS: 36415; 71045; 80053; 82550; 82553; 83690; 83735; 84484; 85025; 93005; 93010; 99284

== ENCOUNTER 2021-10-01 10:43 | Emergency (ER) | payer OTHER, SELFPAY ==
[2021-10-01] VITALS (10 sets, daily range): BP systolic 102–129; BP diastolic 59–81; PULSE 61–98; RESP 13–18; TEMP 37.1; O2SAT 95–98; BMI 23.7
--- NOTE | 2021-10-01 11:01 | DI.RAD.S_ITS ---
PROCEDURE: XR CHEST 1V INDICATIONS: chest pain TECHNIQUE: One view of the chest was acquired with repeat to include the lung bases.. COMPARISON: [facility], [place], XR CHEST 1V, 02/10/2021, 16:29. FINDINGS: Surgical changes and devices: None. Overlying EKG wires. Lungs and pleura: Lungs are clear. No pleural effusions or pneumothorax. Mediastinum: Mediastinal contours appear normal. Heart size is normal. Bones and chest wall: No suspicious bony lesions. Overlying soft tissues appear unremarkable. IMPRESSION: No evidence of an acute cardiopulmonary abnormality. Dictated by: Augie Romero D.O. on 10/01/2021 at 11:01 Approved by: Augie Romero D.O. on 10/01/2021 at 11:02
--- NOTE | 2021-10-01 11:19 | PC.NURSE ---
pt states he has seen his PCP for these episodes states she did not do any testing. Pt states he does not feel this is related to his heart and will decline xray at this time.
[2021-10-01 11:25] LABS: INR 1.2 (0.9-1.3); Prothrombin Time 13.7 SECONDS (10.1-12.7)
[2021-10-01 11:27] LABS: PTT Partial Thromboplastin Tim 33 SECONDS (26.4-36.2)
--- NOTE | 2021-10-01 11:30 | ED_ITS ---
HPI - Chest Pain General Chief Complaint: Chest Pain Stated Complaint: NECK PAIN DOWN LEFT SIDE, HEADACHE, JAW PAIN Time Seen by Provider: 10/01/21 11:22 Source: patient Mode of arrival: Ambulatory Limitations: no limitations History of Present Illness HPI narrative: Patient is a 41-year-old male history of chronic pain on chronic Suboxone, and anxiety presents today with 1 week of a brain fog neck pain shortness of breath difficulty walking. He says that he has had multiple COVID tests are all negative. He has no real shortness of breath with exertion he does not really chest pain. He is more concerned with like a brain fog and confusion. He has got some left-sided neck pain but is not reproducible with movement or palpation he is not having any pain now. He takes 400 mg of ibuprofen daily without any relief. He has no numbness tingling or weakness in his arms or extremities. He went to see his blemish remover earlier this week he is not sure what was done for just does not feel quite right. No headaches no nausea or vomiting. Related Data Home Medications Medication Instructions Recorded Confirmed buprenorphine 8 mg-naloxone 2 mg 0.5 film sublingual Q6-8H 07/23/18 05/31/21 sublingual film duloxetine 60 mg capsule,delayed 60 mg PO DAILY 07/23/18 05/31/21 release ondansetron 8 mg disintegrating 8 mg translingual Q8H PRN Nausea 07/23/18 05/31/21 tablet testosterone 20.25 mg/1.25 gram 1 applic topical QAM 07/23/18 05/31/21 (1.62 %) transdermal gel pump Previous Rx's Medication Instructions Recorded hydroxyzine pamoate 50 mg capsule 50 mg PO TID anxiety #20 caps 10/01/21 (Vistaril) Allergies Allergy/AdvReac Type Severity Reaction Status Date / Time No Known Drug Allergies Allergy Verified 10/01/21 11:02 Review of Systems Review of Systems Narrative: GENERAL: Denies chills, fatigue, malaise, fever, sweats, travel HEENT: Denies sinus pain, ear pain, sore throat, difficulty swallowing, neck pain RESPIRATORY: See HPI CARDIOVASCULAR: Denies chest pain, palpitations, orthopnea, edema GASTROINTESTINAL: Denies nausea, vomiting, abdominal pain, diarrhea, constipation, melena. : Denies dysuria, frequency, incontinence, hematuria, urinary retention, flank pain. MUSCULOSKELETAL: Denies weakness, joint pain, or bony pain SKIN: No rash, no erythema, no pruritus NEUROLOGIC: See HPI PSYCHIATRIC: No concerning psychosocial issues. 12 point review of systems is negative except for those stated above and HPI Patient History Medical History Depression History of narcotic addiction Surgical History No history of previous surgery Social History Smoking Status: Never smoker Smoking Status: Never smoker alcohol intake frequency: 0-2 drinks per day Alcohol type: other Substance Use Type: does not use Exam Initial Vital Signs Initial Vital Signs: Vital Signs Temperature 98.8 F 10/01/21 10:55 Pulse Rate 97 H 10/01/21 10:55 Respiratory Rate 15 10/01/21 10:55 Blood Pressure 128/81 10/01/21 10:55 Pulse Oximetry 97 10/01/21 10:55 Oxygen Delivery Method 10/01/21 10:55 GENERAL: Slightly anxious well-appearing 41-year-old male HEENT: Head atraumatic,EOMI, pupils reactive, face symmetric, moist mucous membranes NECK: No vertebral tenderness no step-off full flexion extension and rotation CARDIOVASCULAR: Regular rate and rhythm without murmurs, rubs or gallops. RESPIRATORY: Breath sounds equal bilaterally, no wheezes rales or rhonchi. ABDOMEN: Soft, nontender. Normoactive bowel sounds all 4 quadrants. No guarding or rebound. EXTREMITIES: Normal range of motion, no clubbing or edema. Neurovascularly intact NEUROLOGICAL: Alert and oriented x4.Normal gait and speech. Cranial nerves II through XII grossly intact. Good [id number], good [id number], strength equal bilaterally, no dysarthria or aphasia, sensation in tact to soft touch bilaterally, no visual changes, no facial droop SKIN: Warm, dry, no laceration, no petechiae, no rashes or lesions. Scores HEART Score Heart Score history: Slightly Suspicious Heart Score EKG: Normal Heart Score Age: < 45 years old Heart Score risk factors: No known risk factors Heart Score troponin: < or = to normal limit Heart Score Total: 0 NIH Stroke Scale Level of Conciousness: Alert, keenly responsive Ask month/age: Answers both questions correctly. Open/close eyes, close hand: Performs both tasks correctly Best gaze horizontal: Normal Visual barkley: No visual loss Facial palsy: Normal symetrical movement Left arm drift: No drift for full 10 sec Right arm drift: No drift for full 10 sec Left leg drift: No drift for full 5 sec Right leg drift: No drift for full 5 sec Limb ataxia: Absent Sensory on face/arms/legs: Normal, no sensory loss Best language: No aphasia, normal Dysarthria: Normal Extinction or inattention: No abnormality Total NIH Stroke scale score: 0 PERC Score Age greater than or equal to 50 years: No Heart rate greater than or equal to 100 bpm: No Room Air O2 Sat less than 95%: No Unilateral leg swelling: No Recent trauma or surgery: No Hemoptysis: No Prior PE or DVT: No Hormone Use: No Total PERC Score: 0 Course Orders Ordered: ED Orders 10/01/21 11:01 XR chest 1V Stat 10/01/21 11:05 EKG-12 Lead Stat 10/01/21 11:16 Complete Blood Count AUTO DIFF Stat Comprehensive Metabolic Panel Stat Lipase Stat Magnesium Stat Partial Thromboplastin Time Stat Prothrombin Time INR Stat Troponin & CK Cardiac Panel Stat 10/01/21 11:39 D Dimer Stat 10/01/21 11:41 CT head/brain wo con Stat 10/01/21 14:26 Consult to BAR ASSISTANT - Check Processor Stat Vital Signs Vital signs: Vital Signs - 8 hr 10/01/21 10:55 10/01/21 10:58 10/01/21 10:58 Temperature 98.8 F Pulse Rate 97 H 98 H Respiratory Rate 15 Blood Pressure 128/81 128/81 Pulse Oximetry 97 96 Oxygen Delivery Method Room Air 10/01/21 11:00 10/01/21 11:00 10/01/21 11:30 Temperature Pulse Rate 92 H Respiratory Rate Blood Pressure 129/78 123/68 Pulse Oximetry 97 Oxygen Delivery Method 10/01/21 11:30 10/01/21 12:00 10/01/21 12:00 Temperature Pulse Rate 81 80 Respiratory Rate 14 13 Blood Pressure 127/72 Pulse Oximetry 97 96 Oxygen Delivery Method 10/01/21 12:30 10/01/21 12:30 10/01/21 13:00 Temperature Pulse Rate 75 78 Respiratory Rate 18 18 Blood Pressure 116/59 L Pulse Oximetry 95 96 Oxygen Delivery Method 10/01/21 13:00 10/01/21 13:30 10/01/21 13:30 Temperature Pulse Rate 66 Respiratory Rate 17 Blood Pressure 102/66 110/68 Pulse Oximetry 96 Oxygen Delivery Method 10/01/21 14:00 10/01/21 14:00 10/01/21 14:30 Temperature Pulse Rate 61 Respiratory Rate 14 Blood Pressure 116/62 125/79 Pulse Oximetry 97 Oxygen Delivery Method 10/01/21 14:30 Temperature Pulse Rate 68 Respiratory Rate 17 Blood Pressure Pulse Oximetry 98 Oxygen Delivery Method MDM - Chest Pain Lab Data Result diagrams: 10/01/21 11:16 10/01/21 11:16 Labs: Lab Results 10/01/21 10/01/21 10/01/21 Range/Units 11:16 11:16 11:16 WBC 4.1 L (4.5-11.0) X10^3/uL RBC 4.70 (4.5-5.9) X10^6/uL Hgb 14.9 (13.5-17.5) g/dL Hct 43.2 (41-53) % MCV 92.0 (80-100) fL MCH 31.7 (26-34) PG MCHC 34.5 (30-36) % RDW 12.8 (11.6-14.8) % Plt Count 182 (150-400) X10^3/uL Neut % (Auto) 57.4 (50-75) % Lymph % (Auto) 33.4 (25-40) % [place] % (Auto) 5.9 (3-14) % Eos % (Auto) 2.6 (2-4) % Baso % (Auto) 0.7 (0-2) % Neut # (Auto) 2400 (8237-6986) /uL Lymph # (Auto) 1400 (4766-3435) /uL [place] # (Auto) 200 (0-900) /uL Eos # (Auto) 100 (0-450) /uL Baso # (Auto) 0 (0-100) /uL PT 13.7 H (10.1-12.7) SECONDS INR 1.2 (0.9-1.3) APTT 33 (26.4-36.2) SECONDS D-Dimer (<230) ng/mL Sodium 138 (137-145) mmol/L Potassium 4.3 (3.4-5.1) mmol/L Chloride 104 (98-107) mmol/L Carbon Dioxide 29 (22-32) mmol/L BUN 28 H (9-20) mg/dL Creatinine 1.01 (0.66-1.25) mg/dL Estimated GFR > 60 (>60) mL/min BUN/Creatinine Ratio 27.7 H (6-22) Glucose 126 H (70-100) mg/dL Calcium 9.1 (8.4-10.2) mg/dL Magnesium 1.9 (1.6-2.3) mg/dL Total Bilirubin 0.6 (0.2-1.3) mg/dL AST 33 (17-59) IU/L ALT 29 (<50) IU/L Alkaline Phosphatase 55 (38-126) U/L Total Creatine Kinase 123 (55-170) U/L CK-MB (CK-2) 1.48 (<2.37) ng/mL CK-MB (CK-2) Rel Index 1.2 L (1.5-5.0) % Troponin I < 0.012 (0.01-0.034) ng/mL Total Protein 7.4 (6.3-8.2) g/dL Albumin 4.4 (3.5-5.0) g/dL Globulin 3.0 (1.7-4.1) g/dL Albumin/Globulin Ratio 1.5 (1.0-2.8) Lipase 36 (23-300) U/L 10/01/21 Range/Units 11:39 WBC (4.5-11.0) X10^3/uL RBC (4.5-5.9) X10^6/uL Hgb (13.5-17.5) g/dL Hct (41-53) % MCV (80-100) fL MCH (26-34) PG MCHC (30-36) % RDW (11.6-14.8) % Plt Count (150-400) X10^3/uL Neut % (Auto) (50-75) % Lymph % (Auto) (25-40) % [place] % (Auto) (3-14) % Eos % (Auto) (2-4) % Baso % (Auto) (0-2) % Neut # (Auto) (5087-0786) /uL Lymph # (Auto) (5287-1409) /uL [place] # (Auto) (0-900) /uL Eos # (Auto) (0-450) /uL Baso # (Auto) (0-100) /uL PT (10.1-12.7) SECONDS INR (0.9-1.3) APTT (26.4-36.2) SECONDS D-Dimer < 200 (<230) ng/mL Sodium (137-145) mmol/L Potassium (3.4-5.1) mmol/L Chloride (98-107) mmol/L Carbon Dioxide (22-32) mmol/L BUN (9-20) mg/dL Creatinine (0.66-1.25) mg/dL Estimated GFR (>60) mL/min BUN/Creatinine Ratio (6-22) Glucose (70-100) mg/dL Calcium (8.4-10.2) mg/dL Magnesium (1.6-2.3) mg/dL Total Bilirubin (0.2-1.3) mg/dL AST (17-59) IU/L ALT (<50) IU/L Alkaline Phosphatase (38-126) U/L Total Creatine Kinase (55-170) U/L CK-MB (CK-2) (<2.37) ng/mL CK-MB (CK-2) Rel Index (1.5-5.0) % Troponin I (0.01-0.034) ng/mL Total Protein (6.3-8.2) g/dL Albumin (3.5-5.0) g/dL Globulin (1.7-4.1) g/dL Albumin/Globulin Ratio (1.0-2.8) Lipase (23-300) U/L Imaging Data Chest x-ray: Radiologist's Impression: CRESENCIO Garcia [id number] XRay Report Signed Patient: David Kruger MR#: [id number] : 1980 Acct:[id number] Age/Sex: 41 / M Date of Service: 10/01/21 Loc: ED Accession Number: [id number] ?? Procedure: XR chest 1V Ordering Provider: Audra Bee D.O. PROCEDURE:? XR CHEST 1V ? INDICATIONS:? chest pain ? TECHNIQUE:? One view of the chest was acquired with repeat to include the lung bases..? ? COMPARISON:? [facility], CR, XR CHEST 1V, 02/10/2021, 16:29. ? FINDINGS:? ? Surgical changes and devices:? None.? Overlying EKG wires. ? Lungs and pleura:? Lungs are clear.? No pleural effusions or pneumothorax.? ? Mediastinum:? Mediastinal contours appear normal.? Heart size is normal.? ? Bones and chest wall:? No suspicious bony lesions.? Overlying soft tissues appear unremarkable.? ? IMPRESSION:? ? No evidence of an acute cardiopulmonary abnormality. ? ? Dictated by: Augie Romero D.O. on 10/01/2021 at 11:01 ? ? CT scan - head: Radiologist's Impression: Signed Patient: David Kruger MR#: [id number] : 1980 Acct:[id number] Age/Sex: 41 / M Date of Service: 10/01/21 Loc: ED Accession Number: [id number] ?? Procedure: CT head/brain wo con Ordering Provider: Audra Bee D.O. PROCEDURE:? CT HEAD/BRAIN WO CON ? INDICATIONS:? confuison difficulty walking ? TECHNIQUE:? Noncontrast 4.5 mm thick angled axial sections acquired from the foramen magnum to the vertex, with coronal and sagittal reformats.? For radiation dose reduction, the following was used:? automated exposure control, adjustment of mA and/or kV according to patient size.? ? COMPARISON:? None. ? FINDINGS:? Image quality:? Excellent.? ? CSF spaces:? Basal cisterns are patent.? No extra-axial fluid collections.? Ventricles are normal in size and shape.? ? Brain:? No midline shift.? No intracranial masses or hemorrhage.? Narayanan-white matter interface is normal.? ? Skull and face:? Calvarium and visualized facial bones are intact, without suspicious lesions.? ? Sinuses:? Mild ethmoid air cell and maxillary sinus mucosal disease.? Paranasal sinuses are otherwise clear.? Mastoid air cells are clear. ? IMPRESSION:? ? No acute intracranial abnormality. ? Mild paranasal sinus mucosal disease. ? ? Dictated by: Augie Romero D.O. on 10/01/2021 at 13:06 ? ? ECG Data Interpretation: Normal sinus rhythm rate 86 AR interval 154 QRS [address] changes or T- wave inversions similar to previous EKG MDM Narrative Medical decision making narrative: Patient is a healthy 41-year-old male. He has now been here a couple times for some likely anxiety. He is chronically on Suboxone trying to taper off it does not, he is actually tapering up to quickly. He has been on the same dose now for about 3 months. He is ill social welfare administrator she sees signs of some anxiety. However patient does have chronic pain which may be exacerbated as well. He is to complaining of some brain fog and headache head CT is negative no focal deficits. Blood work is overall reassuring. He is feeling better now that he is in the ED. his request social workup evaluation are trying he had a new primary care provider. Agreeable to take Vistaril as needed for anxiety attacks but I do discuss need for long-term anxiety medication. I also recommend trying to get off the Suboxone sounds though he has been on it for an extremely long time. He is trying to get off of it but body may or may not be reacting to it. He is low risk for pulmonary embolism D-dimer is also negative. Discharge Plan Departure Patient Disposition: Home Clinical Impression: Anxiety, Chronic pain Instructions: DI for Anxiety -- Adult Activity Restrictions/Additional Instructions: *You have been diagnosed with anxiety, chronic pain *What to do: At this time blood work head CT are overall reassuring. Your heart looks good head CT looks good. At this time you may be having some anxiety which may or may not be related to the Suboxone in tapering. He may have some underlying anxiety as well. Social Work has been consulted they should call you on Sunday with follow-up sometimes afternoon. [employer] work phone #[phone] *Continue to take medications as directed Vistaril 50mg every 6 hours if needed for anxiety --> sent to [facility] *Follow up with your primary care provider in 2-3 days or call [phone] *Return to ER if you should have worsening pain, worsening anxiety shortness of breath or any new, worsening or concerning symptoms Prescriptions: New hydroxyzine pamoate [Vistaril] 50 mg capsule 50 mg PO TID Qty: 20 0RF No Action ondansetron 8 mg tablet,disintegrating 8 mg Translingual Q8H PRN (Reason: Nausea) Label Comments: patient states did not every take medication due to concern of interaction with duloxetine. 07/23/18 duloxetine 60 mg capsule,delayed release(DR/EC) 60 mg PO DAILY Label Comments: take 1 capsule by mouth once daily buprenorphine-naloxone 8-2 mg film 0.5 film Sublingual Q6-8H MDD 1.5 Label Comments: patient states tapering. Currently 1/2 film am and pm and 1/4 if needed testosterone 20.25 mg/1.25 gram (1.62 %) gel in metered-dose pump 1 applic topical QAM Referrals: Michelle Esquivel ND [Primary Care Provider] - Visit Report Forms: Patient Portal/API
[2021-10-01 11:31] LABS: Add Manual Diff / Slide Review NO; Basophils Absolute Auto 0 /uL (0-100); Basophils Percent Auto 0.7 % (0-2); Eosinophils Absolute Auto 100 /uL (0-450); Eosinophils Percent Auto 2.6 % (2-4); Hematocrit 43.2 % (41-53); Hemoglobin 14.9 g/dL (13.5-17.5); Lymphocytes Absolute Auto 1400 /uL (1100-4500); Lymphocytes Percent Auto 33.4 % (25-40); Mean Corpuscular HGB Conc 34.5 % (30-36); Mean Corpuscular Hemoglobin 31.7 PG (26-34); Monocytes Absolute Auto 200 /uL (0-900); Monocytes Percent Auto 5.9 % (3-14); Neutrophils Absolute Auto 2400 /uL (1500-7000); Neutrophils Percent Auto 57.4 % (50-75); Platelet Count 182 X10^3/uL (150-400); Red Cell Distribution Width 12.8 % (11.6-14.8); White Blood Cell Count 4.1 X10^3/uL (4.5-11.0)
[2021-10-01 11:38] LABS: Alanine Aminotransferase 29 IU/L (<50); Albumin 4.4 g/dL (3.5-5.0); Albumin Globulin Ratio 1.5 (1.0-2.8); Alkaline Phosphatase 55 U/L (38-126); Aspartate Aminotransferase 33 IU/L (17-59); BUN Creatinine Ratio 27.7 (6-22); Bilirubin Total 0.6 mg/dL (0.2-1.3); Blood Urea Nitrogen 28 mg/dL (9-20); Calcium 9.1 mg/dL (8.4-10.2); Carbon Dioxide 29 mmol/L (22-32); Chloride 104 mmol/L (98-107); Creatine Kinase 123 U/L (55-170); Estimated Glomerular Filt Rate > 60 mL/min (>60); Glucose 126 mg/dL (70-100); HEMOLYSIS 43 (0-50); Lipase 36 U/L (23-300); Magnesium 1.9 mg/dL (1.6-2.3); Potassium 4.3 mmol/L (3.4-5.1); Sodium 138 mmol/L (137-145); Total Protein 7.4 g/dL (6.3-8.2)
--- NOTE | 2021-10-01 11:41 | DI.CT.S_ITS ---
PROCEDURE: CT HEAD/BRAIN WO CON INDICATIONS: confuison difficulty walking TECHNIQUE: Noncontrast 4.5 mm thick angled axial sections acquired from the foramen magnum to the vertex, with coronal and sagittal reformats. For radiation dose reduction, the following was used: automated exposure control, adjustment of mA and/or kV according to patient size. COMPARISON: None. FINDINGS: Image quality: Excellent. CSF spaces: Basal cisterns are patent. No extra-axial fluid collections. Ventricles are normal in size and shape. Brain: No midline shift. No intracranial masses or hemorrhage. Narayanan-white matter interface is normal. Skull and face: Calvarium and visualized facial bones are intact, without suspicious lesions. Sinuses: Mild ethmoid air cell and maxillary sinus mucosal disease. Paranasal sinuses are otherwise clear. Mastoid air cells are clear. IMPRESSION: No acute intracranial abnormality. Mild paranasal sinus mucosal disease. Dictated by: Augie Romero D.O. on 10/01/2021 at 13:06 Approved by: Augie Romero D.O. on 10/01/2021 at 13:08
[2021-10-01 11:51] LABS: Troponin I < 0.012 ng/mL (0.01-0.034)
[2021-10-01 11:54] LABS: CKMB % Relative Index 1.2 % (1.5-5.0); Creatine Kinase MB 1.48 ng/mL (<2.37)
[2021-10-01 12:20] LABS: D Dimer < 200 ng/mL (<230)
--- NOTE | 2021-10-01 15:20 | CM.SWNOTE ---
STEEL POURER HELPER Note This STEEL POURER HELPER requested for consult to assess needs and of this 41 yo male presented to the ED complaining of chest pain and worried about a neck injury sustained earlier in the week. According to Dr Bee, no medical findings today and patient medically ready for DC from the ER. Dr Bee suspects anxiety is playing a role in patient's frequent visits to the ED Met w/patient and spouse Kylie (w/patient's permission) introduced self and role. Patient works fulltime for the [employer] and explains that lately he has felt out of it ie fatigued, shaky at times, foggy brained and tells this STEEL POURER HELPER this is not usual for him Patient is physically active, lives w/spouse and young dtr. Spouse is a psychosocial rehabilitation counselor for [employer] Spouse Kylie explains that patient has lived with and has managed chronic pain for many years. Patient has not struggled with much, if any, sx of anxiety up until recently Patient admits since injuring himself at the gym, aches and pains have really freaked me out Referenced the cycle of anxiety and explained there is a positive feedback cycle in which anxious thoughts, physical sx and avoidance can feed anxiety Discussed box breathing, starting a journal to identify and outline triggers, making a list of places/thoughts/ideas that bring patient peace and security and setting realistic goals to begin mental/emotional work. Patient admits to great self discipline with physical challenges and getting to the gym. Says he wants to find more balance mental/physical/emotional Concluded by suggesting combination of medication and short term talk therapy, which patient said he would consider. Patient may be able to access E[employer] through work Patient/spouse requested a referral to establish w/ a PCP within the [facility] group, we discussed BHIP. Dr Bee plans to place this referral upon patient?s discharge. This STEEL POURER HELPER emailed ED STEEL POURER HELPER Sangita Hummel, who is scheduled back Sunday10.03.21, requested a call to the [facility] on Sunday to advocate for this patient to get an ER follow up visit to establish w/PCP This STEEL POURER HELPER returns 10.06.21 Patient/spouse state appreciation for the conversation, patient discharged home in no distress, home w/supportive spouse Olga Rubin, CHRISTAL
== END 2021-10-01 15:31 | disposition home or self-care (01) ==
PROVIDERS: Emergency Provider Emergency Medicine; PCP Acupuncturist
DX: F41.9 Anxiety disorder, unspecified (principal); R41.0 Disorientation, unspecified; R07.9 Chest pain, unspecified
CPT/HCPCS: 36415; 70450; 71045; 80053; 82550; 82553; 83690; 83735; 84484; 85025; 85379; 85610; 85730; 93005; 99283; 99284

== ENCOUNTER → 2021-10-14 13:06 | Outpatient (CLI) | payer OTHER, SELFPAY ==
[2021-10-14 14:36] LABS: Add Manual Diff / Slide Review NO; Basophils Absolute Auto 0 /uL (0-100); Basophils Percent Auto 0.5 % (0-2); Eosinophils Absolute Auto 100 /uL (0-450); Eosinophils Percent Auto 2.1 % (2-4); Hematocrit 43.3 % (41-53); Hemoglobin 15.3 g/dL (13.5-17.5); Lymphocytes Absolute Auto 1500 /uL (1100-4500); Lymphocytes Percent Auto 23.4 % (25-40); Mean Corpuscular HGB Conc 35.3 % (30-36); Mean Corpuscular Hemoglobin 32.3 PG (26-34); Mean Corpuscular Volume 91.5 fL (80-100); Monocytes Absolute Auto 300 /uL (0-900); Monocytes Percent Auto 5.3 % (3-14); Neutrophils Absolute Auto 4400 /uL (1500-7000); Neutrophils Percent Auto 68.7 % (50-75); Platelet Count 174 X10^3/uL (150-400); Red Blood Cell Count 4.74 X10^6/uL (4.5-5.9); Red Cell Distribution Width 12.8 % (11.6-14.8); White Blood Cell Count 6.4 X10^3/uL (4.5-11.0)
[2021-10-14 15:24] LABS: Alanine Aminotransferase 28 IU/L (<50); Albumin 4.6 g/dL (3.5-5.0); Albumin Globulin Ratio 1.6 (1.0-2.8); Alkaline Phosphatase 54 U/L (38-126); Aspartate Aminotransferase 29 IU/L (17-59); BUN Creatinine Ratio 25.8 (6-22); Bilirubin Total 0.4 mg/dL (0.2-1.3); Blood Urea Nitrogen 23 mg/dL (9-20); C-Reactive Protein Quant < 0.5 mg/dL (<1.0); Calcium 9.6 mg/dL (8.4-10.2); Carbon Dioxide 31 mmol/L (22-32); Chloride 100 mmol/L (98-107); Estimated Glomerular Filt Rate > 60 mL/min (>60); Globulin 2.9 g/dL (1.7-4.1); Glucose 92 mg/dL (70-100); HEMOLYSIS < 15 (0-50); Potassium 4.4 mmol/L (3.4-5.1); Sodium 140 mmol/L (137-145); Total Protein 7.5 g/dL (6.3-8.2)
[2021-10-14 15:52] LABS: Thyroid Stimulating Hormone 2.06 uIU/mL (0.47-4.68)
[2021-10-14 15:54] LABS: Testosterone 1250 ng/dL (132-813)
[2021-10-14 16:11] LABS: Vitamin B12 > 1000 pg/mL (239-931)
[2021-10-14 17:48] LABS: Erythrocyte Sedimentation Rate 2 MM/HR (0-15)
== END ==
PROVIDERS: PCP Acupuncturist; Referring Provider Acupuncturist; Visit Provider Acupuncturist
DX: R53.83 Other fatigue (principal)
CPT/HCPCS: 36415; 80053; 82607; 84403; 84443; 85025; 85651; 86140

== ENCOUNTER → 2021-12-05 12:28 | Outpatient (CLI) | payer OTHER, SELFPAY ==
[2021-12-05 13:28] LABS: COVID19 -Nasal RAPID Negative (Negative)
--- NOTE | 2021-12-05 14:32 | PM.TREADMILL ---
Cardiac Stress Test Report Referral & Results Date Patient Seen: 12/05/21 Requesting provider: Pasquale Chowdhury Indication: Chest pain Rest ECG: Unremarkable Procedure Note: Today following both written and verbal informed consent, the patient was exercised according to a standard Kristopher protocol. The patient exercised for a total of 10 minutes 57 seconds achieving a maximum heart rate of 173. Patient's maximum systolic blood pressure was 200. This was an estimated 12.8 MET's. There were no ST-T segment changes at all Patient was somewhat quickly tachycardic but overall peak heart rate was not excessive. Blood pressure was slow to increase but did peak at end exercise Patient with occasional PVCs and rare PACs Function aerobic impairment rates about 5% on the active scale Impression: No evidence of ischemia whatsoever Dysrhythmia as above Average exercise capacity Clinical correlation suggested Please note: Actual ECG tracings can be found in the PACS system.
== END ==
PROVIDERS: PCP Family Medicine; Referring Provider Family Medicine; Visit Provider Family Medicine
DX: R07.9 Chest pain, unspecified (principal); F43.9 Reaction to severe stress, unspecified
CPT/HCPCS: 87635; 93016; 93017; 93018

== ENCOUNTER → 2021-12-21 09:21 | Outpatient (CLI) | payer OTHER, SELFPAY ==
[2021-12-21 09:48] LABS: Add Manual Diff / Slide Review NO; Basophils Absolute Auto 0 /uL (0-100); Basophils Percent Auto 0.6 % (0-2); Eosinophils Absolute Auto 200 /uL (0-450); Eosinophils Percent Auto 3.8 % (2-4); Hematocrit 43.8 % (41-53); Hemoglobin 15.5 g/dL (13.5-17.5); Lymphocytes Absolute Auto 1500 /uL (1100-4500); Lymphocytes Percent Auto 28.8 % (25-40); Mean Corpuscular HGB Conc 35.3 % (30-36); Mean Corpuscular Hemoglobin 31.7 PG (26-34); Mean Corpuscular Volume 89.7 fL (80-100); Monocytes Absolute Auto 300 /uL (0-900); Monocytes Percent Auto 6.1 % (3-14); Neutrophils Absolute Auto 3200 /uL (1500-7000); Neutrophils Percent Auto 60.7 % (50-75); Platelet Count 193 X10^3/uL (150-400); Red Blood Cell Count 4.88 X10^6/uL (4.5-5.9); Red Cell Distribution Width 12.5 % (11.6-14.8); White Blood Cell Count 5.3 X10^3/uL (4.5-11.0)
[2021-12-21 10:50] LABS: Alanine Aminotransferase 25 IU/L (<50); Albumin 4.8 g/dL (3.5-5.0); Albumin Globulin Ratio 1.6 (1.0-2.8); Alkaline Phosphatase 67 U/L (38-126); Aspartate Aminotransferase 25 IU/L (17-59); BUN Creatinine Ratio 24.2 (6-22); Bilirubin Total 0.6 mg/dL (0.2-1.3); Blood Urea Nitrogen 22 mg/dL (9-20); Calcium 9.8 mg/dL (8.4-10.2); Carbon Dioxide 30 mmol/L (22-32); Chloride 102 mmol/L (98-107); Cholesterol 150 mg/dL (140-199); Estimated Glomerular Filt Rate > 60 mL/min (>60); Glucose 103 mg/dL (70-100); HDL Cholesterol 42 mg/dL (40-60); HEMOLYSIS < 15 (0-50); LDL Cholesterol Calculated 89 mg/dL (<100); Potassium 4.8 mmol/L (3.4-5.1); Sodium 140 mmol/L (137-145); Total Protein 7.8 g/dL (6.3-8.2); Triglycerides 95 mg/dL (35-150)
[2021-12-28 08:12] LABS: Percent Free Testosterone 4.01 % (1.50-4.20); Testosterone Total 812.9 ng/dL (264.0-916.0)
== END ==
PROVIDERS: PCP Family Medicine; Referring Provider Family Medicine; Visit Provider Family Medicine
DX: E34.9 Endocrine disorder, unspecified (principal); F11.21 Opioid dependence, in remission; F41.1 Generalized anxiety disorder
CPT/HCPCS: 36415; 80053; 80061; 84402; 84403; 85025

== ENCOUNTER → 2022-06-23 08:41 | Outpatient (CLI) | payer OTHER, SELFPAY ==
[2022-06-23 10:22] LABS: Add Manual Diff / Slide Review NO; Basophils Absolute Auto 0 /uL (0-100); Basophils Percent Auto 0.9 % (0-2); Eosinophils Absolute Auto 100 /uL (0-450); Eosinophils Percent Auto 3.5 % (2-4); Hematocrit 42.6 % (41-53); Hemoglobin 14.9 g/dL (13.5-17.5); Lymphocytes Absolute Auto 1400 /uL (1100-4500); Lymphocytes Percent Auto 38.1 % (25-40); Mean Corpuscular Hemoglobin 31.3 PG (26-34); Mean Corpuscular Volume 89.6 fL (80-100); Monocytes Absolute Auto 200 /uL (0-900); Monocytes Percent Auto 6.1 % (3-14); Neutrophils Absolute Auto 1900 /uL (1500-7000); Neutrophils Percent Auto 51.4 % (50-75); Platelet Count 171 X10^3/uL (150-400); Red Blood Cell Count 4.75 X10^6/uL (4.5-5.9); Red Cell Distribution Width 13.6 % (11.6-14.8); White Blood Cell Count 3.7 X10^3/uL (4.5-11.0)
[2022-06-23 11:14] LABS: Vitamin D 25 Hydroxy (D3) 91.2 ng/mL (30.0-100.0)
[2022-06-23 14:42] LABS: Alanine Aminotransferase 38 IU/L (<50); Albumin 4.4 g/dL (3.5-5.0); Albumin Globulin Ratio 1.6 (1.0-2.8); Alkaline Phosphatase 58 U/L (38-126); Aspartate Aminotransferase 39 IU/L (17-59); Bilirubin Total 0.5 mg/dL (0.2-1.3); Blood Urea Nitrogen 19 mg/dL (9-20); Calcium 9.4 mg/dL (8.4-10.2); Carbon Dioxide 28 mmol/L (22-32); Chloride 104 mmol/L (98-107); Estimated Glomerular Filt Rate > 60 mL/min (>60); Globulin 2.8 g/dL (1.7-4.1); Glucose 79 mg/dL (70-100); HEMOLYSIS < 15 (0-50); Potassium 4.3 mmol/L (3.4-5.1); Sodium 138 mmol/L (137-145); Total Protein 7.2 g/dL (6.3-8.2)
[2022-06-23 15:14] LABS: Cortisol AM (Before 10AM) 5.91 ug/dL (4.46-22.7)
[2022-06-23 15:18] LABS: Ferritin 106 ng/mL (18-464)
[2022-07-01 21:15] LABS: Percent Free Testosterone 3.48 % (1.50-4.20); Testosterone Free 98.38 ng/dL (5.00-21.00); Testosterone Total 2827.1 ng/dL (264.0-916.0)
== END ==
PROVIDERS: PCP Family Medicine; Referring Provider Family Medicine; Visit Provider Family Medicine
DX: Z00.00 Encounter for general adult medical examination without abnormal findings (principal); R53.83 Other fatigue; E29.1 Testicular hypofunction
CPT/HCPCS: 36415; 80053; 82306; 82533; 82728; 84402; 84403; 85025; 86618; 87476

== ENCOUNTER → 2022-09-01 10:09 | Outpatient (CLI) | payer OTHER, SELFPAY ==
[2022-09-05 10:31] LABS: Percent Free Testosterone 3.75 % (1.50-4.20); Testosterone Free 16.01 ng/dL (5.00-21.00); Testosterone Total 426.9 ng/dL (264.0-916.0)
== END ==
PROVIDERS: PCP Family Medicine; Referring Provider Acupuncturist; Visit Provider Acupuncturist
DX: E29.1 Testicular hypofunction (principal)
CPT/HCPCS: 36415; 84402; 84403

== ENCOUNTER → 2023-03-06 09:41 | Outpatient (CLI) | payer OTHER, SELFPAY ==
[2023-03-06 10:52] LABS: Add Manual Diff / Slide Review NO; Basophils Absolute Auto 0 /uL (0-100); Basophils Percent Auto 0.9 % (0-2); Eosinophils Absolute Auto 200 /uL (0-450); Eosinophils Percent Auto 4.7 % (2-4); Hemoglobin 14.6 g/dL (13.5-17.5); Lymphocytes Absolute Auto 1500 /uL (1100-4500); Lymphocytes Percent Auto 35.3 % (25-40); Mean Corpuscular HGB Conc 34.8 % (30-36); Mean Corpuscular Hemoglobin 31.6 PG (26-34); Mean Corpuscular Volume 90.7 fL (80-100); Monocytes Absolute Auto 300 /uL (0-900); Monocytes Percent Auto 6.3 % (3-14); Neutrophils Absolute Auto 2200 /uL (1500-7000); Neutrophils Percent Auto 52.8 % (50-75); Platelet Count 169 X10^3/uL (150-400); Red Blood Cell Count 4.63 X10^6/uL (4.5-5.9); Red Cell Distribution Width 13.1 % (11.6-14.8); White Blood Cell Count 4.2 X10^3/uL (4.5-11.0)
[2023-03-06 11:52] LABS: Prostate Specific Antigen Scrn 0.686 ng/mL (0.1-4.0)
[2023-03-22 11:41] LABS: Testosterone Total 3019.6 ng/dL (264.0-916.0)
== END ==
PROVIDERS: PCP Family Medicine; Referring Provider Acupuncturist; Visit Provider Acupuncturist
DX: E29.1 Testicular hypofunction (principal)
CPT/HCPCS: 36415; 84402; 84403; 85025; G0103

== ENCOUNTER → 2023-04-23 10:00 | Outpatient (CLI) | payer OTHER, SELFPAY ==
[2023-04-30 09:43] LABS: Percent Free Testosterone 3.72 % (1.50-4.20); Testosterone Total 389.9 ng/dL (264.0-916.0)
== END ==
PROVIDERS: PCP Family Medicine; Referring Provider Acupuncturist; Visit Provider Acupuncturist
DX: E29.1 Testicular hypofunction (principal)
CPT/HCPCS: 36415; 84402; 84403

== ENCOUNTER → 2023-07-02 11:01 | Outpatient (CLI) | payer OTHER, SELFPAY | PROVIDERS: PCP Family Medicine; Referring Provider Acupuncturist; Visit Provider Acupuncturist | DX: E29.1 Testicular hypofunction (principal) | CPT/HCPCS: 36415; 84402; 84403 ==

== ENCOUNTER → 2023-12-17 06:53 | Outpatient (CLI) | payer OTHER, SELFPAY ==
[2023-12-17 08:55] LABS: Add Manual Diff / Slide Review NO; Basophils Absolute Auto 0 /uL (0-100); Eosinophils Absolute Auto 300 /uL (0-450); Eosinophils Percent Auto 6.3 % (2-4); Hemoglobin 14.4 g/dL (13.5-17.5); Lymphocytes Absolute Auto 1700 /uL (1100-4500); Lymphocytes Percent Auto 39.7 % (25-40); Mean Corpuscular HGB Conc 34.3 % (30-36); Mean Corpuscular Hemoglobin 31.6 PG (26-34); Monocytes Absolute Auto 300 /uL (0-900); Neutrophils Absolute Auto 1900 /uL (1500-7000); Platelet Count 165 X10^3/uL (150-400); Red Blood Cell Count 4.57 X10^6/uL (4.5-5.9); Red Cell Distribution Width 12.9 % (11.6-14.8); White Blood Cell Count 4.2 X10^3/uL (4.5-11.0)
[2023-12-17 09:06] LABS: Alanine Aminotransferase 38 IU/L (<50); Albumin 4.3 g/dL (3.5-5.0); Albumin Globulin Ratio 1.7 (1.0-2.8); Alkaline Phosphatase 83 U/L (38-126); Aspartate Aminotransferase 46 IU/L (17-59); BUN Creatinine Ratio 25.2 (6-22); Bilirubin Total 0.4 mg/dL (0.2-1.3); Blood Urea Nitrogen 27 mg/dL (9-20); Calcium 9.3 mg/dL (8.4-10.2); Carbon Dioxide 31 mmol/L (22-32); Chloride 104 mmol/L (98-107); Estimated Glomerular Filt Rate > 60 mL/min (>60); Globulin 2.5 g/dL (1.7-4.1); Glucose 73 mg/dL (70-100); HEMOLYSIS < 15 (0-50); Potassium 4.3 mmol/L (3.4-5.1); Sodium 140 mmol/L (137-145); Total Protein 6.8 g/dL (6.3-8.2)
[2023-12-17 09:35] LABS: Prostate Specific Antigen 0.488 ng/mL (0.10-4.00)
== END ==
PROVIDERS: PCP Family Medicine; Referring Provider Family Medicine; Visit Provider Family Medicine
DX: E34.9 Endocrine disorder, unspecified (principal); F41.1 Generalized anxiety disorder
CPT/HCPCS: 36415; 80053; 84153; 84402; 84403; 85025

== ENCOUNTER → 2025-01-02 07:57 | Outpatient (CLI) | payer OTHER, SELFPAY ==
[2025-01-02 08:35] LABS: Add Manual Diff / Slide Review NO; Hematocrit 43.0 % (41-53); Hemoglobin 15.1 g/dL (13.5-17.5); Lymphocytes Absolute Auto 1300 /uL (1100-4500); Mean Corpuscular HGB Conc 35.1 % (30-36); Mean Corpuscular Hemoglobin 32.2 PG (26-34); Mean Corpuscular Volume 91.6 fL (80-100); Platelet Count 200 X10^3/uL (150-400)
[2025-01-02 09:02] LABS: Alanine Aminotransferase 47 IU/L (<50); Albumin 4.7 g/dL (3.5-5.0); Albumin Globulin Ratio 1.6 (1.0-2.8); Alkaline Phosphatase 71 U/L (38-126); Blood Urea Nitrogen 21 mg/dL (9-20); Calcium 9.7 mg/dL (8.4-10.2); Carbon Dioxide 29 mmol/L (22-32); Chloride 104 mmol/L (98-107); Cholesterol 183 mg/dL (140-199); Estimated Glomerular Filt Rate > 60 mL/min (>60); Globulin 2.9 g/dL (1.7-4.1); Glucose 58 mg/dL (70-99); HDL Cholesterol 54 mg/dL (40-60); HEMOLYSIS < 15 (0-50); Potassium 4.0 mmol/L (3.4-5.1); Sodium 140 mmol/L (137-145); Total Protein 7.6 g/dL (6.3-8.2); Triglycerides 104 mg/dL (35-150)
[2025-01-02 09:29] LABS: TSH w/ Reflex to FT4 2.95 uIU/mL (0.47-4.68)
[2025-01-02 09:30] LABS: Prostate Specific Antigen 0.439 ng/mL (0.10-4.00)
== END ==
PROVIDERS: PCP Family Medicine; Referring Provider Family Medicine; Visit Provider Family Medicine
DX: Z00.00 Encounter for general adult medical examination without abnormal findings (principal); E34.9 Endocrine disorder, unspecified; F41.1 Generalized anxiety disorder
CPT/HCPCS: 36415; 80053; 80061; 84153; 84402; 84403; 84443; 85025